=== PATIENT | male | born 1955 | race Caucasian/White ===

== ENCOUNTER 2024-10-26 10:31 | Emergency (ER) | payer MEDICARE ==
[2024-10-26 11:42] LABS: APPEARANCE,URINE CLEAR (Clear); BILIRUBIN,URINE NEGATIVE (Negative); COLOR,URINE LIGHT YELLOW (Yellow); GLUCOSE,URINE NEGATIVE (Negative); KETONES,URINE 1+ (Negative); LEUKOCYTE ESTERASE,URINE NEGATIVE (Negative); NITRITE,URINE NEGATIVE (Negative); OCCULT BLOOD,URINE NEGATIVE (Negative); PROTEIN,URINE NEGATIVE (Negative); UROBILINOGEN,URINE 0.2 (0.2-1.0)
[2024-10-26] MEDS ORDERED: Lidocaine 2% Jelly 5 ML Tube MUCMEM ONE (12:01)
[2024-10-26] MEDS: Lidocaine 2% 11 ML Jelly Filled Syringe ONE (12:05)
[2024-10-26 12:08] LABS: ANION GAP 10.6 (5-15); CALCIUM 9.3 mg/dL (8.5-10.1); EST CRCL DRUG DOSING (CG) 42.8 mL/min; POTASSIUM,K 4.6 mEq/L (3.5-5.1)
== END 2024-10-26 12:51 | disposition home or self-care (01) ==
LOC: JD.ED 10:31
DX: N13.1 Hydronephrosis with ureteral stricture, not elsewhere classified (principal); Z79.899 Other long term (current) drug therapy
CPT/HCPCS: 36415; 51702; 80048; 81003; 99283; A9270-GY